=== PATIENT | male | born 1965 ===

== ENCOUNTER 2017-10-27 19:34 | Inpatient (IN) | payer MEDICAID, OTHER ==
[2017-10-27 19:45] VITALS: O2SAT 98
--- NOTE | 2017-10-27 20:02 | C.PDOC ---
History Of Present Illness 52 year old male with PMHx of depression presents to the ED c/o cocaine dependency. Patient was admitted 4 days ago to [facility] for SI thoughts, no space available at that time at [facility]. Patient was transferred and accepted to voluntary psych admission at the Hospital under Dr. Mayfield. Patient denies any SI/HI at the moment, hallucinations. Patient states feeling depressed and has been medically c;eared [employer] with all his lab paperwork in hand. Time Seen by Provider: 10/27/17 20:01 Chief Complaint (Nursing): Psychiatric Evaluation History Per: Patient History/Exam Limitations: no limitations Onset/Duration Of Symptoms: Days Current Symptoms Are (Timing): Gone Suicide/Self Injury Attempted (Context): None Modifying Factor(s): Cocaine Associated Symptoms: Depression. denies: Suicidal Thoughts, Suicidal Plan Recent travel outside of the [place]: No Additional History Per: Patient, EMS Past Medical History Reviewed: Historical Data, Nursing Documentation, Vital Signs Vital Signs: Last Vital Signs Temp 98.5 F 10/27/17 19:41 Pulse 90 10/27/17 21:21 Resp 17 10/27/17 21:29 BP 123/80 10/27/17 21:21 Pulse Ox 98 10/27/17 20:47 - Medical History PMH: Depression Surgical History: No Surg Hx Family History: States: Unknown Family Hx - Social History Hx Alcohol Use: No Hx Substance Use: Yes Review Of Systems Constitutional: Negative for: Fever, Chills Cardiovascular: Negative for: Chest Pain Gastrointestinal: Negative for: Nausea Skin: Negative for: Rash Neurological: Negative for: Weakness, Numbness Psych: Positive for: Depression. Negative for: Suicidal ideation Physical Exam - Physical Exam Appears: Non-toxic, No Acute Distress, Other (Flat affect) Skin: Normal Color, Warm, Dry Head: Atraumatic, Normacephalic Eye(s): bilateral: Normal Inspection Nose: No Discharge Oral Mucosa: Moist Neck: Normal ROM, Supple Chest: Symmetrical Cardiovascular: Rhythm Regular, No Murmur Respiratory: Normal Breath Sounds, No Rales, No Rhonchi, No Wheezing Gastrointestinal/Abdominal: Soft, No Tenderness, No Guarding, No Rebound Extremity: Normal ROM, No Tenderness, Capillary Refill (< 2 seconds), No Swelling Pulses: Left Dorsalis Pedis: Normal, Right Dorsalis Pedis: Normal Neurological/Psych: Oriented x3 Gait: Steady ED Course And Treatment O2 Sat by Pulse Oximetry: 98 (ON RA) Pulse Ox Interpretation: Normal Medical Decision Making Medical Decision Making: Impression: Cocaine dependency Plan: * Admitted to Dr. Mayfield service for psych Disposition - Disposition Disposition: HOSPITALIZED Disposition Time: 20:01 Condition: GOOD - Clinical Impression Clinical Impression: Cocaine abuse, Moderate major depression, single episode - Scribe Statement The provider has reviewed the documentation as recorded by the Scribyfn Baptiste All medical record entries made by the Scribe were at my direction and personally dictated by me. I have reviewed the chart and agree that the record accurately reflects my personal performance of the history, physical exam, medical decision making, and the department course for this patient. I have also personally directed, reviewed, and agree with the discharge instructions and disposition.
--- NOTE | 2017-10-27 21:39 | PCM.BM ---
<Arin Morel - Last Filed: 10/27/17 21:36> Treatment Plan Problems - Problems identified on initial assessmt Depression Date Initiated: 10/27/17 Time Initiated: 21:36 Assessment reference: NA Status: Active Substance Abuse Date Initiated: 10/27/17 Time Initiated: 21:36 Assessment reference: NA Status: Active Treatment assets and liabiliti Patient Assests: adapts well, cooperative, educated, ADL independent, physically healthy, negotiates basic needs, cognitively intact Patient Liabilities: live alone (lives with friend), financial problems ( Unemployed), substance abuse (Hx of Cocaine), medical problems (Per pt hx of Left Shoulder pain ) - Milieu Protocol Maintain good personal hygiene: daily Encourage regular showers, daily Remind patient to perform daily oral care, daily Assist patient to perform ADL's (Self) Conduct patient checks and document Observation sheet: Q15 minutes (Safety) Maintain personal safety: every shift Educate patient to report safety concerns to staff, every shift Monitor environment for contraband/sharps Medication safety: Monitor for expected outcome, potential side effects: every shift, Assess barriers to learning: every shift, Assess readiness for medication education: every shift <Ca Mayfield - Last Filed: 10/29/17 11:12> - Diagnosis (1) Bipolar disorder Status: Acute Interventions: 10/29/17 11:12 * Assess/adjust medications daily and /or as needed * See patient on an individual basis 7x/week to assess level of manic behaviors and stability * Discuss risks, benefits, side effects and alternatives of medications * (2) Cocaine abuse Status: Acute Interventions: 10/29/17 11:12 * Assess 7x/week regarding severity of withdrawal * Educate regarding risks, benefits, side effects and alternatives of medications * Use Motivational Interviewing for abstinence * Use CBT for relapse prevention * Medication management for withdrawal symptoms * Encourage medication assisted treatment * <Felicita Anthony - Last Filed: 10/29/17 11:15> Family Contact Family involvement: Famliy/SO not involved - Goals for Treatment Patient goals for treatment: "I want to go to the [facility]." Discharge/Continuing Care - Education Needs Education Needs: Patient Medication, Patient Coping Skills, Patient Placement options, Patient Community resources - Discharge Discharge Criteria: Tolerates medication w/o severe side effects, No longer exhibiting s/s of withdrawal, Reduction of target symptoms Discharge to:: Substance Abuse Rehab - Treatment Team Participation Discussed with Family/SO: No Was Patient/Family/SO present at Treatment Team Meeting: Yes
--- NOTE | 2017-10-28 09:59 | PCM.PSYCH ---
Initial Psychiatric Evaluation - Initial Psychiatric Evaluation Type of Admission: Voluntary Legal Status: Capacity Chief Complaint (in patient's own words): CC: "I'm depressed" History of Present Illness and Precipitating Events: Patient is a 52 year old male who lives with his friend. Patient presented with depression and cocaine use disorder. Patient was admitted four days ago to [facility] for suicidal ideation, however, due to lack of space he was transferred to [facility]. Patient states that he feels depressed and anxious. Patient has had four to five psychiatric hospitalizations in the past. Patient reports past suicide attempt five years ago, with percocet overdose. Patient also reports a manic episode in the month of May, when he had high energy, did not sleep, was very efficient, and spent money on clothes and watches. Patient states that he has been using cocaine for 40 years, and that his longest period of sobriety was from [id number]. Patient states that he recently relapsed when he stopped taking his medications. Patient uses 10 grams/day of cocaine, but denies any other drug or alcohol use. Patient plans to go to [facility] for nine months following this hospitalization. He denies any AVH or any paranoia. PMH: Denies Current Medications: Active Medications Generic Name Dose Route Start Last Admin Trade Name Freq PRN Reason Stop Dose Admin Benztropine Mesylate 2 mg 10/27/17 21:22 Cogentin PO Q6 PRN Extra Pyramidal Symptoms Gabapentin 300 mg 10/27/17 21:30 10/28/17 09:50 Neurontin PO 300 mg BID LAWSON Administration Hydroxyzine HCl 25 mg 10/27/17 21:22 Atarax PO Q6 PRN Anxiety Olanzapine 5 mg 10/27/17 22:00 10/27/17 21:50 Zyprexa PO 5 mg HS LAWSON Administration Pneumococcal Polyvalent Vaccine 0.5 ml 10/30/17 10:00 Pneumovax 23 Vaccine IM 10/30/17 10:01 .ONCE ONE Trazodone HCl 100 mg 10/27/17 22:00 10/27/17 21:50 Desyrel PO 100 mg HS LAWSON Administration Past Psychiatric History - Past Psychiatric History Previous Treatment History: Inpatient Pertinent Medical Hx (Current Medical&Sleep Prob, Allergies): Allergies Allergy/AdvReac Type Severity Reaction Status Date / Time Penicillins Allergy Verified 10/27/17 19:45 Gabapentin [Neurontin] 600 mg PO QID 10/27/17 OLANZapine [ZyPREXA] 2.5 mg PO BID 10/27/17 traZODone [trazodone Hydrochloride] 100 mg PO HS 10/27/17 Review of Systems - Review of Systems All systems: reviewed and no additional remarkable complaints except - Psychiatric Psychiatric: Anxiety, Depression, Hopelessness, Mood Swings, Suicidal Ideation. absent: Hallucinations, Homicidal Ideation Mental Status Examination - Personal Presentation Personal Presentation: Looks stated age - Affect Affect: Constricted - Motor Activity Motor Activity: Calm - Reliability in Providing Information Reliability in Providing Information: Good - Speech Speech: Organized - Mood Mood: Depressed, Anxious - Formal Thought Process Formal Thought Process: Flight of ideas, Circumstantial - Obsessions/Compulsions Obsessions: No Compulsions: No - Cognitive Functions Orientation: Person, Place, Situation, Time Sensorium: Alert Attention/Concentration: Attentive Abstract Thinking: Ridott Estimate of Intelligence: Below average Judgement: Imparied, as evidence by: Poor judgement, Imparied, as evidence by: Lack of insight into illness Memory: Recent intact, as evidence by: Ability to recall events of the day, Remote intact, as evidenced by: Abilit to recall sig. life events - Risk Risk: Suicidal, Diminished functioning - Strength & Assets Inventory Strength & Assets Inventory: Cooperative DSM 5 DX - DSM 5 DSM 5 Diagnosis: Bipolar disorder mixed severe without psychotic features Cocaine Use Disorder severe - Recommended/Plan of Treatment Treatment Recommendations and Plan of Treatment: Bipolar disorder mixed severe without psychotic features -Psychotherapy -Supportive therapy, group therapy, individual therapy -Neurontin 800 mg PO TID -Atarax 25 mg PO q6 PRN -Zyprexa 5 mg PO HS -Desyrel 100 mg PO HS Cocaine Use Disorder severe -Psychoeducation -Supportive therapy - Smoking Cessation Smoking Cessation Initiated: No
[2017-10-29 06:24] VITALS: RESP 18
--- NOTE | 2017-10-29 11:12 | PCM.PYCHPN ---
Psychiatric Progress Note - Psychiatric Progress Note Patient seen today, length of contact: 15 min Patient Chief Complaint: CC: "I'm feeling little better." Problems Identified/Issues Discussed: Patient seen and evaluated, chart reviewed and discussed with the nurse. As per the staff, patient still appears isolated, depressed and withdrawn. Patient still reports depressed mood and reports at times irritability and agitation, and poor concentration. He denies any auditory or visual hallucinations or any psychotic symptoms. He reports improvement in the withdrawal symptoms. He is taking meds but denies any side effects. He needs more time for stabilization. Supportive therapy and psychoeducation were given. Medication Change: Yes Medical Record Reviewed: Yes Mental Status Examination - Cognitive Function Orientation: Person, Place, Situation, Time Memory: Intact Attention: WNL Concentration: Poor Association: WNL Fund of Knowledge: Poor - Mood Mood: Depressed, Anxious - Affect Affect: Constricted - Speech Speech: Soft - Formal Thought Process Formal Thought Process: Flight of ideas, Circumstantial - Suicidal Ideation Suicidal Ideation: No - Homicidal Ideation Homicidal Ideation: No Goal/Treatment Plan - Goal/Treatment Plan Need for Continued Stay: Severe depression anxiety, Severe functional impairment Progress Toward Problem(s) and Goals/Treatment Plan: Bipolar disorder mixed severe without psychotic features -Psychotherapy -Supportive therapy, group therapy, individual therapy -Neurontin 800 mg PO TID -Atarax 25 mg PO q6 PRN -Zyprexa 5 mg PO HS -Desyrel 100 mg PO HS Cocaine Use Disorder severe -Psychoeducation -Supportive therapy - Smoking Cessation Smoking Cessation Initiated: No
[2017-10-30] MEDS ORDERED: Pneumococcal 23-Valent Vaccine IM ONE (10:00)
--- NOTE | 2017-10-30 16:36 | PCM.PYCHPN ---
Psychiatric Progress Note - Psychiatric Progress Note Patient seen today, length of contact: 15 min Patient Chief Complaint: CC: "I'm feeling better." Problems Identified/Issues Discussed: Patient seen and evaluated, chart reviewed and discussed with the nurse. Patient reports improvement in his mood and reports improvement in the irritability and agitation He denies any auditory or visual hallucinations or any psychotic symptoms. He reports improvement in the withdrawal symptoms. He is taking meds but denies any side effects. He needs more time for stabilization. Supportive therapy and psychoeducation were given. Medication Change: Yes Medical Record Reviewed: Yes Mental Status Examination - Cognitive Function Orientation: Person, Place, Situation, Time Memory: Intact Attention: WNL Concentration: WNL Association: WNL Fund of Knowledge: Poor - Mood Mood: Depressed, Anxious - Affect Affect: Constricted - Speech Speech: Soft - Formal Thought Process Formal Thought Process: No Impairment - Suicidal Ideation Suicidal Ideation: No - Homicidal Ideation Homicidal Ideation: No Goal/Treatment Plan - Goal/Treatment Plan Need for Continued Stay: Severe depression anxiety, Severe functional impairment Progress Toward Problem(s) and Goals/Treatment Plan: Bipolar disorder mixed severe without psychotic features -Psychotherapy -Supportive therapy, group therapy, individual therapy -Neurontin 800 mg PO TID -Atarax 25 mg PO q6 PRN -Zyprexa 5 mg PO HS -Desyrel 100 mg PO HS Cocaine Use Disorder severe -Psychoeducation -Supportive therapy - Smoking Cessation Smoking Cessation Initiated: No
[2017-10-31 06:23] VITALS: BP 105/75; PULSE 71; TEMP 98.3
--- NOTE | 2017-10-31 10:21 | PCM.PYCHDC ---
Mental Status Examination - Mental Status Examination Orientation: Person, Place, Situation, Time Memory: Intact Mood: Neutral Affect: Constricted Speech: Soft Attention: WNL Concentration: WNL Association: WNL Fund of Knowledge: WNL Formal Thought Process: No Impairment Description of patient's judgement and insight: good, fair Psychotic Thoughts and Behaviors: denies any AVH Suicidal Ideation: No Current Homicidal Ideation?: No Discharge Summary - Discharge Note Reason for Hospitalization: Patient is a 52 year old male who lives with his friend. Patient presented with depression and cocaine use disorder. Patient was admitted four days ago to [facility] for suicidal ideation, however, due to lack of space he was transferred to [facility]. Patient states that he feels depressed and anxious. Patient has had four to five psychiatric hospitalizations in the past. Patient reports past suicide attempt five years ago, with percocet overdose. Patient also reports a manic episode in the month of May, when he had high energy, did not sleep, was very efficient, and spent money on clothes and watches. Patient states that he has been using cocaine for 40 years, and that his longest period of sobriety was from [id number]. Patient states that he recently relapsed when he stopped taking his medications. Patient uses 10 grams/day of cocaine, but denies any other drug or alcohol use. Patient plans to go to [facility] for nine months following this hospitalization. He denies any AVH or any paranoia. Consultations:: List each consultation separately and include: 1. Reason for request. 2. Findings. 3. Follow-up Summary of Hospital Course include:: 1. Description of specific treatment plan utilized for patients during their course of treatmen. 2. Summarize the time- course for resolution of acute symptoms and/or regressed behaviors. 3. Describe issues identified and worked on during hospitalization. 4. Describe medication utilized. 5. Describe medical problems identified and treated. 6. Reassessment of suicide risk Summary of Hospital Course: During the course of his stay, patient (pt) started progressively improving and he no longer remained irritable, depressed, and suicidal. His mood and anxiety symptoms were improved and he started attending groups and meetings and started socializing. Patient denied any feelings of hopelessness, helplessness, and worthlessness, denied any problem with the sleep or appetite, denied suicidal ideation or homicidal ideation. Pt denied any auditory or visual hallucinations. He denied any withdrawal symptoms. Some changes were made in his current medications and patient was discharged on following medications. He tolerated these medications very well and denied any side effects. He was discharged to the residential rehab program at [facility] in [place]. - Diagnosis (1) Bipolar disorder Status: Acute (2) Cocaine abuse Status: Acute - Final Diagnosis (DSM 5) Condition upon Discharge: [facility] DSM 5: Bipolar disorder mixed severe without psychotic features Cocaine Use Disorder severe Disposition: HOME/ ROUTINE Follow-up Treatment Plan: Education: Pt was educated and counseled about the risks and benefits of taking and not taking medications. Pt was educated and counseled about the risks of drinking and abusing drugs. Pt was educated and counseled to go to the ER or call 911 if pt develop suicidal ideation or homicidal ideation, worsening of symptoms or severe side effects of the meds. Prescriptions/Medication Reconciliation: Gabapentin [Neurontin] 800 mg PO TID #90 tab Olanzapine [Zyprexa] 5 mg PO HS #30 tablet traZODone [Desyrel] 100 mg PO HS #30 tab - Smoking Cessation Smoking Cessation Medication prescribed: No - Antipsychotic Medications Pt discharged on 2 or more routine antipsychotic medications: No
== END 2017-10-31 09:42 | disposition home or self-care (01) | DRG 430 ==
LOC: C.ER 19:34 → C.5E 20:02
PROVIDERS: ADMIT Psychiatry & Neurology Psychiatry; ATTEND Psychiatry & Neurology Psychiatry
PROC: GZHZZZZ Group Psychotherapy (ICD-10-PCS; principal; 2017-10-27)
PROC: GZ56ZZZ Individual Psychotherapy, Supportive (ICD-10-PCS; 2017-10-27)
DX: F31.63 Bipolar disorder, current episode mixed, severe, without psychotic features (principal); F14.20 Cocaine dependence, uncomplicated; R45.851 Suicidal ideations

== ENCOUNTER 2018-06-09 00:49 | Inpatient (IN) | payer MEDICAID, OTHER ==
--- NOTE | 2018-06-09 01:23 | C.PDOC ---
Time Seen by Provider: 06/09/18 01:21 Chief Complaint (Nursing): Psychiatric Evaluation Past Medical History Vital Signs: Last Vital Signs Temp 98.6 F 06/09/18 01:16 Pulse 95 H 06/09/18 01:16 Resp 18 06/09/18 01:16 BP 139/69 06/09/18 01:16 Pulse Ox 100 06/09/18 01:16 - Medical History PMH: Bipolar Disorder, Depression - [facility] Procedures GROUP PSYCHOTHERAPY (10/27/17) INDIVIDUAL PSYCHOTHERAPY, SUPPORTIVE (10/27/17) Family History: States: Unknown Family Hx - Social History Hx Alcohol Use: No Hx Substance Use: Yes - Immunization History Hx Tetanus Toxoid Vaccination: No Hx Influenza Vaccination: No Hx Pneumococcal Vaccination: No ED Course And Treatment O2 Sat by Pulse Oximetry: 100 Disposition Counseled Patient/Family Regarding: Studies Performed, Diagnosis - Disposition Disposition Time: 01:21 Condition: FAIR
[2018-06-09 01:40] LABS: BASO # 0.1 K/uL (0.0-0.2); BASO % 0.7 % (0.0-2.0); EOS # 0.2 K/uL (0.0-0.7); EOS % 1.5 % (0.0-4.0); HEMOGLOBIN 14.4 g/dL (12.0-18.0); LYMPH # 3.9 K/uL (1.0-4.3); LYMPH % 27.7 % (20.0-40.0); MEAN CELL VOLUME 89.8 fL (80.0-94.0); MEAN CORPUSCULAR HEMOGLOBIN 31.1 pg (27.0-31.0); MEAN CORPUSCULAR HGB CONC 34.6 g/dL (33.0-37.0); MEAN PLATELET VOLUME 7.4 fL (7.2-11.7); MONO % 6.9 % (0.0-10.0); NEUT # 8.9 K/uL (1.8-7.0); NEUT % 63.2 % (50.0-75.0); RBC 4.64 Mil/uL (4.40-5.90); RED CELL DISTRIBUTION WIDTH 15.3 % (11.5-14.5)
[2018-06-09 01:43] LABS: URINE BILIRUBIN NEGATIVE (NEGATIVE); URINE BLOOD NEGATIVE (NEGATIVE); URINE CLARITY Clear (Clear); URINE COLOR Straw (YELLOW); URINE GLUCOSE (UA) NORMAL (Normal); URINE LEUKOCYTE ESTERASE NEG Leu/uL (Negative); URINE PROTEIN NEGATIVE (NEGATIVE); URINE UROBILINOGEN NORMAL mg/dL (0.2-1.0)
--- NOTE | 2018-06-09 01:50 | C.PDOC ---
History Of Present Illness 53 year old male presents to the ED for evaluation of suicidal ideation. Patient also states today he took 15 Gabapentin. Patient reports he has been feeling depressed with thoughts of harming himself with no plan. Patient denies HI, hallucinations, nausea, vomiting, diarrhea CP, SOB, injury, fall, trauma. Time Seen by Provider: 06/09/18 01:21 Chief Complaint (Nursing): Psychiatric Evaluation History Per: Patient History/Exam Limitations: no limitations Onset/Duration Of Symptoms: Hrs Current Symptoms Are (Timing): Still Present Suicide/Self Injury Attempted (Context): Ingestion Associated Symptoms: Depression, Suicidal Thoughts. denies: Suicidal Plan Recent travel outside of the [place]: No Additional History Per: Patient Past Medical History Reviewed: Historical Data, Nursing Documentation, Vital Signs Vital Signs: Last Vital Signs Temp 98.6 F 06/09/18 01:16 Pulse 95 H 06/09/18 01:16 Resp 18 06/09/18 01:16 BP 139/69 06/09/18 01:16 Pulse Ox 100 06/09/18 01:23 - Medical History PMH: Bipolar Disorder, Depression Surgical History: No Surg Hx - [facility] Procedures GROUP PSYCHOTHERAPY (10/27/17) INDIVIDUAL PSYCHOTHERAPY, SUPPORTIVE (10/27/17) Family History: States: Unknown Family Hx - Social History Hx Alcohol Use: No Hx Substance Use: Yes - Immunization History Hx Tetanus Toxoid Vaccination: No Hx Influenza Vaccination: No Hx Pneumococcal Vaccination: No Review Of Systems Constitutional: Negative for: Fever, Chills Cardiovascular: Negative for: Chest Pain Respiratory: Negative for: Shortness of Breath Gastrointestinal: Negative for: Nausea, Vomiting, Abdominal Pain Skin: Negative for: Rash Psych: Positive for: Depression, Suicidal ideation Physical Exam - Physical Exam Appears: Non-toxic, No Acute Distress Skin: Normal Color, Warm, Dry Head: Atraumatic, Normacephalic Eye(s): bilateral: Normal Inspection Oral Mucosa: Moist Neck: Normal ROM, Supple Chest: Symmetrical Cardiovascular: Rhythm Regular Respiratory: Normal Breath Sounds, No Rales, No Rhonchi, No Wheezing Gastrointestinal/Abdominal: Soft, No Tenderness, No Guarding, No Rebound Extremity: Normal ROM, No Tenderness, No Swelling Neurological/Psych: Oriented x3, Normal Speech, Normal Cognition Gait: Steady ED Course And Treatment - Laboratory Results Result Diagrams: 06/09/18 01:38 06/09/18 01:38 ECG: Interpreted By Me, Viewed By Me ECG Rhythm: Sinus Rhythm Rate From EC (BPM) O2 Sat by Pulse Oximetry: 100 (ON RA) Pulse Ox Interpretation: Normal Medical Decision Making Medical Decision Making: PLan: * EKG * Labs * Crisis * UA The case was discussed with poison control who state to observe the patient and that there are no other interventions to be done at this time. The case was discussed with psych soapstoner who agrees to admit the patient. Disposition - Disposition Disposition: HOSPITALIZED Disposition Time: 05:01 Condition: FAIR Forms: [employer] (South Korean) - Clinical Impression Clinical Impression: Moderate major depression, single episode - PA / SPINNER HAND / Resident Statement MD/DO has reviewed & agrees with the documentation as recorded. - Scribe Statement The provider has reviewed the documentation as recorded by the Scribe Adriano Baptiste All medical record entries made by the Scribe were at my direction and personally dictated by me. I have reviewed the chart and agree that the record accurately reflects my personal performance of the history, physical exam, medical decision making, and the department course for this patient. I have also personally directed, reviewed, and agree with the discharge instructions and disposition.
[2018-06-09 01:53] LABS: ALB/GLOB RATIO 1.6 (1.0-2.1); ALBUMIN 4.8 g/dL (3.5-5.0); ALT/SGPT 57 U/L (21-72); AST/SGOT 43 U/L (17-59); BLOOD UREA NITROGEN 17 mg/dL (9-20); CALCIUM 9.8 mg/dl (8.6-10.4); GFR NON-AFRICAN AMERICAN > 60
[2018-06-09 01:58] LABS: BARBITURATES, UR NEGATIVE (NEGATIVE); BENZODIAZEPINES, UR NEGATIVE (NEGATIVE); OPIATES, UR NEGATIVE (NEGATIVE); PHENCYCLIDINE, UR NEGATIVE (NEGATIVE)
--- NOTE | 2018-06-09 06:12 | PCM.BM ---
<Constantine Foster - Last Filed: 06/09/18 06:11> Treatment Plan Problems - Problems identified on initial assessmt Suicidal Ideation Date Initiated: 06/09/18 Time Initiated: 05:40 Assessment reference: NA Status: Monitor Depression Date Initiated: 06/09/18 Time Initiated: 05:40 Assessment reference: NA Status: Active Treatment assets and liabiliti Patient Assests: adapts well, cooperative, educated, ADL independent, physically healthy, negotiates basic needs, cognitively intact Patient Liabilities: financial problems, poor support system, substance abuse (Cocaine), imparied memory - Milieu Protocol Maintain good personal hygiene: daily Encourage regular showers, daily Remind patient to perform daily oral care, every shift Assist patient to perform ADL's Conduct patient checks and document Observation sheet: Q15 minutes Maintain personal safety: every shift Educate patient to report safety concerns to staff, every shift Monitor environment for contraband/sharps Medication safety: Monitor for expected outcome, potential side effects: every shift, Assess barriers to learning: every shift, Assess readiness for medication education: every shift <Ca Mayfield - Last Filed: 06/10/18 10:51> - Diagnosis (1) Bipolar disorder Status: Acute Interventions: 06/10/18 10:51 * Assess/adjust medications daily and /or as needed * See patient on an individual basis 7x/week to assess level of manic behaviors and stability * Discuss risks, benefits, side effects and alternatives of medications * (2) Cocaine abuse Status: Acute Interventions: 06/10/18 10:51 * Assess 7x/week regarding severity of withdrawal * Educate regarding risks, benefits, side effects and alternatives of medications * Use Motivational Interviewing for abstinence * Use CBT for relapse prevention * Medication management for withdrawal symptoms * Encourage medication assisted treatment * <Kandi Ho - Last Filed: 06/10/18 11:25> Family Contact Family involvement: Patient does not wish Family/SO involvement Family contact: Patient declines to allow family contact at present - Goals for Treatment Patient goals for treatment: "I do not know what type treatment I want at this time." Discharge/Continuing Care - Education Needs Education Needs: Patient Medication, Patient Diagnosis/Disease Process, Patient Placement options, Patient Community resources - Discharge Discharge Criteria: Free of Suicidal thoughts, Normal sleep pattern, Ability to care for self, No longer exhibiting s/s of withdrawal, Reduction of target symptoms Discharge to:: Home - Treatment Team Participation Discussed with Family/SO: No Was Patient/Family/SO present at Treatment Team Meeting: Yes
--- NOTE | 2018-06-09 11:12 | PCM.PSYCH ---
Initial Psychiatric Evaluation - Initial Psychiatric Evaluation Type of Admission: Voluntary Legal Status: Capacity Chief Complaint (in patient's own words): I was feeling so depressed that I overdose on prescription pills, gabapentin.' History of Present Illness and Precipitating Events: Pt. is 53 yr old male, currently unemployed, came to the ED with depressed mood, suicidal ideation and suicide attempt, by overdosing on prescri ption medications. Patient reports history of few inpatient psychiatric hospitalizations. He was last discharged from [facility], more than 7 months ago. He reports history of follow-up with his psychiatrist but reports he was partially compliant with medications. He reports that he relapsed to cocaine and started smoking almost 4-5 g of cocaine daily. Patient reports that yesterday he became increasingly depressed and he took 15 or 16 gabapentin pills in a suicide attempt. Patient reports that he always get very depressed around the holidays. Pt reports that he is from his (10) yrs ago and he has no contact with his children 16 and 21. Both of his parents are . Pt said that he has attempted suicide in the past by way of pills and by way of overdose on opioids. He reports depressed mood, feelings of hopelessness and helplessness, poor sleep and poor appetite. He still reports suicidal ideation but denies any auditory hallucinations or any paranoia. He denies any homicidal ideation. He denies any irritability, agitation or any racing thoughts. Past medical history None reported Current Medications: Active Medications Generic Name Dose Route Start Last Admin Trade Name Freq PRN Reason Stop Dose Admin Pneumococcal Polyvalent Vaccine 0.5 ml 06/12/18 10:00 Pneumovax 23 Vaccine IM 06/12/18 10:01 .ONCE ONE Past Psychiatric History - Past Psychiatric History Previous Treatment History: Inpatient Pertinent Medical Hx (Current Medical&Sleep Prob, Allergies): Allergies Allergy/AdvReac Type Severity Reaction Status Date / Time Penicillins Allergy Verified 06/09/18 01:16 Gabapentin [Neurontin] 600 mg PO QID 10/27/17 OLANZapine [ZyPREXA] 2.5 mg PO BID 10/27/17 traZODone [trazodone Hydrochloride] 100 mg PO HS 10/27/17 Gabapentin [Neurontin] 800 mg PO TID #90 tab 10/30/17 Olanzapine [Zyprexa] 5 mg PO HS #30 tablet 10/30/17 traZODone [Desyrel] 100 mg PO HS #30 tab 10/30/17 Review of Systems - Review of Systems All systems: reviewed and no additional remarkable complaints except - Psychiatric Psychiatric: Anxiety, Irritability, Suicidal Ideation Mental Status Examination - Personal Presentation Personal Presentation: Looks stated age - Affect Affect: Constricted, Depressed - Motor Activity Motor Activity: Calm - Reliability in Providing Information Reliability in Providing Information: Poor, due to altered mood - Speech Speech: Organized - Mood Mood: Depressed, Anxious - Formal Thought Process Formal Thought Process: No Impairment - Obsessions/Compulsions Obsessions: No Compulsions: No - Cognitive Functions Orientation: Person, Place, Situation Sensorium: Alert, Stuporous Attention/Concentration: Attentive Abstract Thinking: Ware Estimate of Intelligence: Below average Judgement: Imparied, as evidence by: Poor judgement, Imparied, as evidence by: Lack of insight into illness - Risk Risk: Suicidal, Diminished functioning - Limitations Limitations: Living alone DSM 5 DX - DSM 5 DSM 5 Diagnosis: Bipolar disorder depressed severe without psychotic features Cocaine use disorder severe - Recommended/Plan of Treatment Treatment Recommendations and Plan of Treatment: Bipolar disorder depressed severe without psychotic features Cocaine use disorder severe CBT Psychoeducation Supportive therapy and group therapy Olanzapine 5 mg p.o. nightly Wellbutrin 75 mg p.o. daily Trazodone 50 mg p.o. nightly Hydroxyzine 25 mg p.o. every 6 hours as needed
--- NOTE | 2018-06-10 09:41 | PCM.PYCHPN ---
Psychiatric Progress Note - Psychiatric Progress Note Patient seen today, length of contact: 15 min Patient Chief Complaint: I m feeling depressed.' Problems Identified/Issues Discussed: Patient was seen and evaluated, chart reviewed and discussed the staff. Patient still reports depressed mood, feelings of hopelessness and helplessness, poor sleep and poor appetite. He still reports suicidal ideation but denies any plan. He denies any homicidal ideation. He denies any auditory hallucinations or any paranoia. He is taking medication but denies any side effects. Psychotherapy was given Medication Change: Yes Medical Record Reviewed: Yes Mental Status Examination - Cognitive Function Orientation: Person, Place, Situation Memory: Intact Attention: WNL Concentration: Poor Association: WNL Fund of Knowledge: Poor - Mood Mood: Depressed, Anxious - Affect Affect: Constricted, Depressed - Speech Speech: Soft - Formal Thought Process Formal Thought Process: No Impairment - Suicidal Ideation Suicidal Ideation: No - Homicidal Ideation Homicidal Ideation: No Goal/Treatment Plan - Goal/Treatment Plan Need for Continued Stay: Severe depression anxiety, Severe functional impairment Progress Toward Problem(s) and Goals/Treatment Plan: Bipolar disorder depressed severe without psychotic features Cocaine use disorder severe CBT Psychoeducation Supportive therapy and group therapy Olanzapine 5 mg p.o. nightly Wellbutrin 150 mg p.o. daily Trazodone 50 mg p.o. nightly Remeron 15 mg p.o. nightly Hydroxyzine 25 mg p.o. every 6 hours as needed - Smoking Cessation Smoking Cessation Initiated: No
--- NOTE | 2018-06-10 19:40 | CARD ---
APPROVED REPORT Date of service: 06/09/2018 EKG Measurement Heart [id number] <Conclusion> Normal sinus rhythm Normal ECG
--- NOTE | 2018-06-11 13:15 | PCM.PYCHPN ---
Psychiatric Progress Note - Psychiatric Progress Note Patient seen today, length of contact: 15 min Patient Chief Complaint: I m feeling depressed.' Problems Identified/Issues Discussed: Patient was seen and evaluated, chart reviewed and discussed the staff. Patient still reports depressed mood, feelings of hopelessness and helplessness, poor sleep and poor appetite. He still reports suicidal ideation but denies any plan. He denies any homicidal ideation. He denies any auditory hallucinations or any paranoia. He is taking medication but denies any side effects. Psychotherapy was given Medication Change: Yes Medical Record Reviewed: Yes Mental Status Examination - Cognitive Function Orientation: Person, Place, Situation Memory: Intact Attention: WNL Concentration: Poor Association: WNL Fund of Knowledge: Poor - Mood Mood: Depressed, Anxious - Affect Affect: Constricted, Depressed - Speech Speech: Soft - Formal Thought Process Formal Thought Process: No Impairment - Suicidal Ideation Suicidal Ideation: No - Homicidal Ideation Homicidal Ideation: No Goal/Treatment Plan - Goal/Treatment Plan Need for Continued Stay: Severe depression anxiety, Severe functional impairment Progress Toward Problem(s) and Goals/Treatment Plan: Bipolar disorder depressed severe without psychotic features Cocaine use disorder severe CBT Psychoeducation Supportive therapy and group therapy Olanzapine 5 mg p.o. nightly Wellbutrin 150 mg p.o. daily Trazodone 50 mg p.o. nightly Remeron 30 mg p.o. nightly Hydroxyzine 25 mg p.o. every 6 hours as needed
[2018-06-12] MEDS: buPROPion 150 mg/24 Hours XL Tab PO SCH (09:56)
[2018-06-12] MEDS ORDERED: Pneumococcal 23-Valent Vaccine IM ONE (10:00)
--- NOTE | 2018-06-12 13:02 | PCM.PYCHPN ---
Psychiatric Progress Note - Psychiatric Progress Note Patient seen today, length of contact: 15 min Patient Chief Complaint: I m feeling depressed.' Problems Identified/Issues Discussed: Patient was seen and evaluated, chart reviewed and discussed the staff. Today patient reports some improvement in his mood but he remained isolative and withdrawn. He still reports feelings of hopelessness and helplessness, poor sleep and poor appetite. Per staff he still reports suicidal ideation but denies any plan. He denies any homicidal ideation. He denies any auditory hallucinations or any paranoia. He is taking medication but denies any side effects. Psychotherapy was given Medication Change: Yes Medical Record Reviewed: Yes Mental Status Examination - Cognitive Function Orientation: Person, Place, Situation Memory: Intact Attention: WNL Concentration: Poor Association: WNL Fund of Knowledge: Poor - Mood Mood: Depressed, Anxious - Affect Affect: Constricted, Depressed - Speech Speech: Soft - Formal Thought Process Formal Thought Process: No Impairment - Suicidal Ideation Suicidal Ideation: No - Homicidal Ideation Homicidal Ideation: No Goal/Treatment Plan - Goal/Treatment Plan Need for Continued Stay: Severe depression anxiety, Severe functional impairment Progress Toward Problem(s) and Goals/Treatment Plan: Bipolar disorder depressed severe without psychotic features Cocaine use disorder severe CBT Psychoeducation Supportive therapy and group therapy Olanzapine 5 mg p.o. nightly Wellbutrin 150 mg p.o. daily Trazodone 50 mg p.o. nightly Remeron 30 mg p.o. nightly Hydroxyzine 25 mg p.o. every 6 hours as needed
[2018-06-13 06:23] VITALS: O2SAT 95
[2018-06-13] MEDS: buPROPion 150 mg/24 Hours XL Tab PO SCH (09:03)
--- NOTE | 2018-06-13 10:45 | PCM.PYCHPN ---
Psychiatric Progress Note - Psychiatric Progress Note Patient seen today, length of contact: 15 min Patient Chief Complaint: I m feeling depressed.' Problems Identified/Issues Discussed: Patient was seen and evaluated, chart reviewed and discussed the staff. Today patient reports some improvement in his mood but he remained isolative and withdrawn. He still reports feelings of hopelessness and helplessness, poor sleep and poor appetite. Per staff he still reports suicidal ideation but denies any plan. He denies any homicidal ideation. He denies any auditory hallucinations or any paranoia. He is taking medication but denies any side effects. Psychotherapy was given Medication Change: Yes Medical Record Reviewed: Yes Mental Status Examination - Cognitive Function Orientation: Person, Place, Situation Memory: Intact Attention: WNL Concentration: Poor Association: WNL Fund of Knowledge: Poor - Mood Mood: Depressed, Anxious - Affect Affect: Constricted, Depressed - Speech Speech: Soft - Formal Thought Process Formal Thought Process: No Impairment - Suicidal Ideation Suicidal Ideation: No - Homicidal Ideation Homicidal Ideation: No Goal/Treatment Plan - Goal/Treatment Plan Need for Continued Stay: Severe depression anxiety, Severe functional impairment Progress Toward Problem(s) and Goals/Treatment Plan: Bipolar disorder depressed severe without psychotic features Cocaine use disorder severe CBT Psychoeducation Supportive therapy and group therapy Olanzapine 5 mg p.o. nightly Wellbutrin 300 mg p.o. daily Trazodone 200 mg p.o. nightly Remeron 30 mg p.o. nightly Hydroxyzine 25 mg p.o. every 6 hours as needed
--- NOTE | 2018-06-14 08:33 | PCM.PYCHPN ---
Psychiatric Progress Note - Psychiatric Progress Note Patient seen today, length of contact: 15 min Patient Chief Complaint: I m feeling depressed.' Problems Identified/Issues Discussed: Patient was seen and evaluated, chart reviewed and discussed the staff. Today patient reports some improvement in his mood but he remained isolative and withdrawn. He still reports feelings of hopelessness and helplessness, poor sleep and poor appetite. Per staff he still reports suicidal ideation but denies any plan. He denies any homicidal ideation. He denies any auditory hallucinations or any paranoia. He is taking medication but denies any side effects. Psychotherapy was given Medication Change: Yes Medical Record Reviewed: Yes Mental Status Examination - Cognitive Function Orientation: Person, Place, Situation Memory: Intact Attention: WNL Concentration: WNL Association: WNL Fund of Knowledge: Poor - Mood Mood: Depressed, Anxious - Affect Affect: Constricted, Depressed - Speech Speech: Soft - Formal Thought Process Formal Thought Process: No Impairment - Suicidal Ideation Suicidal Ideation: No - Homicidal Ideation Homicidal Ideation: No Goal/Treatment Plan - Goal/Treatment Plan Need for Continued Stay: Severe depression anxiety, Severe functional impairment Progress Toward Problem(s) and Goals/Treatment Plan: Bipolar disorder depressed severe without psychotic features Cocaine use disorder severe CBT Psychoeducation Supportive therapy and group therapy Olanzapine 5 mg p.o. nightly Wellbutrin 300 mg p.o. daily Trazodone 200 mg p.o. nightly Remeron 30 mg p.o. nightly Hydroxyzine 25 mg p.o. every 6 hours as needed - Smoking Cessation Smoking Cessation Initiated: No
[2018-06-14] MEDS: buPROPion 150 mg/24 Hours XL Tab PO SCH (09:13)
[2018-06-14] MEDS ORDERED: buPROPion 150 mg/24 Hours XL Tab PO ONE (14:33)
[2018-06-15 06:24] VITALS: RESP 18
[2018-06-15] MEDS: buPROPion 150 mg/24 Hours XL Tab PO SCH (09:02)
[2018-06-15] MEDS ORDERED: buPROPion 150 mg/24 Hours XL Tab PO ONE ×2 (11:00→13:45)
[2018-06-16 06:00] VITALS: BP 123/85; PULSE 97; TEMP 98.2
[2018-06-16] MEDS ORDERED: buPROPion 150 mg/24 Hours XL Tab PO SCH (10:00)
--- NOTE | 2018-06-16 20:40 | PCM.PYCHDC ---
Mental Status Examination - Mental Status Examination Orientation: Person, Place, Situation, Time Memory: Intact Mood: Neutral Affect: Other (Appropriate) Speech: Appropriate Attention: WNL Concentration: WNL Association: WNL Fund of Knowledge: WNL Formal Thought Process: No Impairment Description of patient's judgement and insight: Fair Psychotic Thoughts and Behaviors: None Suicidal Ideation: No Current Homicidal Ideation?: No Discharge Summary - Discharge Note Reason for Hospitalization: Bipolar I disorder most recent episode depressed without psychotic features. Cocaine use disorder severe. Laboratory Data: Reviewed Consultations:: List each consultation separately and include: 1. Reason for request. 2. Findings. 3. Follow-up Summary of Hospital Course include:: 1. Description of specific treatment plan utilized for patients during their course of treatmen. 2. Summarize the time- course for resolution of acute symptoms and/or regressed behaviors. 3. Describe issues identified and worked on during hospitalization. 4. Describe medication utilized. 5. Describe medical problems identified and treated. 6. Reassessment of suicide risk Summary of Hospital Course: Pt. is 53 yr old male, currently unemployed, came to the ED with depressed mood, suicidal ideation and suicide attempt, by overdosing on prescription medications. Patient reports history of few inpatient psychiatric hospitalizations. He was last discharged from [facility], more than 7 months ago. He reports history of follow-up with his psychiatrist but reports he was partially compliant with medications. He reports that he relapsed to cocaine and started smoking almost 4-5 g of cocaine daily. Patient reports that yesterday he became increasingly depressed and he took 15 or 16 gabapentin pills in a suicide attempt. Patient reports that he always get very depressed around the holidays. Pt reports that he is from his (10) yrs ago and he has no contact with his children 16 and 21. Both of his parents are . Pt said that he has attempted suicide in the past by way of pills and by way of overdose on opioids. He reports depressed mood, feelings of hopelessness and helplessness, poor sleep and poor appetite. He still reports suicidal ideation but denies any auditory hallucinations or any paranoia. He denies any homicidal ideation. He denies any irritability, agitation or any racing thoughts. Past medical history None reported During his stay in the hospital patient was treated with Zyprexa and Wellbutrin. Patient was started on other PRN medications. Patient was also attending groups and other activities on the unit. With above treatment patient started feeling better. Today patient was stable and ready for discharge from the hospital. At the time of evaluation and discharge, patient was awake, alert and oriented x3, had no delusions, no auditory or visual hallucinations, no suicidal ideations or homicidal ideations. Patient was discharged in a stable condition. - Final Diagnosis (DSM 5) Condition upon Discharge: FAIR Disposition: HOME/ ROUTINE Follow-up Treatment Plan: Patient will go to [facility] for follow-up care after discharge from the hospital. - Smoking Cessation Smoking Cessation Medication prescribed: No - Antipsychotic Medications Pt discharged on 2 or more routine antipsychotic medications: No
== END 2018-06-16 12:50 | disposition home or self-care (01) | DRG 430 ==
LOC: C.ER 00:49 → SUPCPDRO 00:49 → C.5E 05:07
PROVIDERS: ADMIT Psychiatry & Neurology Psychiatry; ATTEND Psychiatry & Neurology Psychiatry
PROC: GZHZZZZ Group Psychotherapy (ICD-10-PCS; principal; 2018-06-09)
PROC: HZ52ZZZ Individual Psychotherapy for Substance Abuse Treatment, Cognitive-Behavioral (ICD-10-PCS; 2018-06-09)
PROC: GZ58ZZZ Individual Psychotherapy, Cognitive-Behavioral (ICD-10-PCS; 2018-06-09)
PROC: GZ56ZZZ Individual Psychotherapy, Supportive (ICD-10-PCS; 2018-06-09)
PROC: HZ59ZZZ Individual Psychotherapy for Substance Abuse Treatment, Supportive (ICD-10-PCS; 2018-06-09)
PROC: HZ56ZZZ Individual Psychotherapy for Substance Abuse Treatment, Psychoeducation (ICD-10-PCS; 2018-06-09)
PROC: HZ42ZZZ Group Counseling for Substance Abuse Treatment, Cognitive-Behavioral (ICD-10-PCS; 2018-06-09)
PROC: HZ46ZZZ Group Counseling for Substance Abuse Treatment, Psychoeducation (ICD-10-PCS; 2018-06-09)
DX: F31.30 Bipolar disorder, current episode depressed, mild or moderate severity, unspecified (principal); F14.20 Cocaine dependence, uncomplicated; R45.851 Suicidal ideations; T42.6X2A Poisoning by other antiepileptic and sedative-hypnotic drugs, intentional self-harm, initial encounter; Z88.0 Allergy status to penicillin; F41.9 Anxiety disorder, unspecified; F41.8 Other specified anxiety disorders